=== PATIENT | male | born 1995 | race Caucasian/White ===

== ENCOUNTER 2017-05-18 19:17 | Emergency (ER) | payer SELFPAY ==
[2017-05-18] MEDS ORDERED: IBUPROFEN 600 MG TAB PO ONE (19:52)
--- NOTE | 2017-05-18 20:33 | EDPHY ---
H & P Stated Complaint: Fall, Nose Pain - Personal History Current Tetanus/Diphtheria Vaccine: Yes Current Tetanus Diphtheria and Acellular Pertussis (TDAP): Yes - Medical/Surgical History Hx Asthma: No Hx Chronic Respiratory Disease: No Hx Diabetes: No Hx Cardiac Disease: No Hx Renal Disease: No Hx Cirrhosis: No Hx Alcoholism: No Hx HIV/AIDS: No Hx Splenectomy or Spleen Trauma: No Other PMH: PMH: denies - Social History Smoking Status: Heavy smoker HPI/ROS: Chief complaint: Fall with facial injury History of present illness: This is a 22-year-old male who presents to the emergency department with EMS after tripping and falling, striking his face against the ground injuring his nose. Patient states he tripped over himself. There were no other preceding factors such as dizziness or syncope. He fell forward and struck his face. There was no loss of consciousness. Upon getting up he noted a deformity to his nose but was able to push it back into place. Reports nasal pain at this time. He denies other associated signs or symptoms including no headache, no neck pain, no trauma or pain to the rest of the body, further no neurologic symptoms such as paresthesias, weakness or paralysis or bowel or bladder dysfunction. Review of systems: Review of systems was obtained and other than described above was negative (Blake Messina) - Physical Exam Exam: General Appearance: Alert, very upset Eyes: PERRLA, EOM intact. Respiratory: Lungs clear to auscultation bilaterally. Cardiac: Regular rate and rhythm. Gastrointestinal: Soft, nondistended, nontender. Neurological: Alert. Cranial nerves 2-12 grossly intact. Strength and sensation intact and symmetrical. Skin: Contusion to the nose Musculoskeletal: Tenderness to the nasal region. Head is nontender. The spine is nontender without crepitus, bony deformity step-off. Chest wall intact palpation. Patient moving all extremities without difficulty. (Blake Messina) Constitutional: Initial Vital Signs Temperature (C) 36.3 C 05/18/17 19:19 Heart Rate 75 05/18/17 19:19 Respiratory Rate 18 05/18/17 19:19 Blood Pressure 104/77 05/18/17 19:19 O2 Sat (%) 100 05/18/17 19:19 O2 Delivery Mode Room Air Allergies/Adverse Reactions: No Known Allergies Allergy (Unverified 05/18/17 19:22) Home Medications: Medication Instructions Recorded NK [No Known Home Meds] 05/18/17 Medical Decision Making - Diagnostics Imaging: I viewed and interpreted images myself ED Course/Re-evaluation: Patient seen under the supervision of my secondary supervising physician Dr. Yanely Evans. Patient brought to the emergency department by EMS after tripping and falling and striking his face against the ground. Very upset is having a difficult time concentrating on talking with me on initial evaluation. Imaging studies are obtained to rule out significant injuries, nasal fractures are noted otherwise unremarkable. Patient will be discharged home. He is referred to ENT for follow-up. Return precautions are given. (Blake Messina) The patient was evaluated and managed by the physician assistant sales manager. I have reviewed this chart and I agree with the findings and plan of care as documented , as indicated by my signature. I am the secondary supervising physician. ( Yanely Evans) Differential Diagnosis: Included but not limited to contusion, facial bone fractures, intracranial injury, spinal cord injury (Blake eMssina) - Data Points Medications Given: Discontinued Medications Ibuprofen (Motrin) 600 mg PO EDNOW ONE Stop: 05/18/17 19:53 Last Admin: 05/18/17 19:55 Dose: 600 mg Departure - Departure Disposition: Home, Routine, Self-Care Clinical Impression: Nasal fracture Qualifiers: Encounter type: initial encounter Fracture type: closed Qualified Code(s): S02.2XXA - Fracture of nasal bones, initial encounter for closed fracture Condition: Good Instructions: Nasal Fracture (ED) Additional Instructions: Follow-up with ENT for continued evaluation and care Use ibuprofen 600 mg 3 times a day for the next 2-3 days for pain Ice the injury, 20 minutes on, 3 times daily for the next 3 days If symptoms worsen or new symptoms develop return to the emergency room for recheck Referrals: NONE *PRIMARY CARE P,. [Primary Care Provider] - As per Instructions Ady Crowell MD [Medical Doctor] - As per Instructions
[2017-05-18 20:43] VITALS: BP 104/64; PULSE 67; RESP 16; TEMP 97.7; O2SAT 97
== END 2017-05-18 20:42 | disposition home or self-care (01) ==
DX: S02.2XXA Fracture of nasal bones, initial encounter for closed fracture (principal); F17.200 Nicotine dependence, unspecified, uncomplicated; W01.198A Fall on same level from slipping, tripping and stumbling with subsequent striking against other object, initial encounter; Y99.8 Other external cause status; Y93.89 Activity, other specified

== ENCOUNTER 2017-09-07 08:00 | Emergency (ER) | payer MEDICAID ==
[2017-09-07 08:23] VITALS: BP 118/69; PULSE 70; RESP 20; TEMP 97.9; O2SAT 99
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
== END 2017-09-07 09:45 | disposition home or self-care (01) ==
LOC: EDUNIT#
DX: Z59.0 Homelessness (principal); F17.200 Nicotine dependence, unspecified, uncomplicated